=== PATIENT | female | born 1975 | race Caucasian/White ===

== ENCOUNTER → 2016-09-13 07:19 | Day surgery (SDC) | payer OTHER ==
[~2016-09-13 07:19] MED LIST: Atracurium* 10 MG/ML 10 ML VIAL ONE; Buffered Lidocaine 1% SYRIN* 3 ML/SYR SYRINGE INTRADERM ONE; Bupivacaine 0.5% W/EPI SDV* 30 ML VIAL ONE; Dexamethasone IV* 4 MG/ML 1 ML (4 MG) IV SLOW PU ONE; Dexamethasone IV* 4 MG/ML 1 ML (4 MG) ONE; DiMENhydriNATE IV* 50 MG/ML VIAL IV PUSH PRN; EPINEPHrine AMP 1 MG/ML ONE; Famotidine IV* 10 MG/ML 2 ML (20 mg) IV ONE; Famotidine IV* 10 MG/ML 2 ML (20 mg) ONE; HYDROmorphone* 1 MG/ML 1 ML SYR IV PRN; Ketorolac INJ* 30 MG/ML 1 ML VIAL ONE; Midazolam* 1 MG/ML 5 ML VIAL (5 MG) ONE; Ondansetron INJ* 2 MG/ML VIAL IV PRN; Ondansetron INJ* 2 MG/ML VIAL ONE; Propofol* 10 MG/ML 20 ML BTL IV PUSH ONE; ROPIVACAINE 5 MG/ML 30 ML BTL (0.5%) ONE; Scopolamine 1.5 mg* PATCH TRANSDERM PRN; Scopolomine PATCH Remove* 1 NOTE MISC PATCH OFF ONE; ceFAZolin 2 GM PREMIX(*) 2 GM/50 ML BAG IVPB ONE; fentaNYL* 50 MCG/ML 2 ML VIAL (100 MCG VIAL) IV PRN; fentaNYL* 50 MCG/ML 2 ML VIAL (100 MCG VIAL) ONE; oxyCODONE/Acetamin 5/325 MG* TAB ONE; oxyCODONE/Acetamin 5/325 MG* TAB PO PRN
[2016-09-13 07:26] LABS: Manual Entry Verification HAN0055; UR Preg Internal Control QC Line Present
[2016-09-13 14:05] VITALS: BP 110/70
--- NOTE | 2016-09-14 07:14 | RAD ---
INDICATION: Right knee arthroscopic surgery, anterior cruciate ligament reconstruction. COMPARISON: Comparison is made with a prior x-ray study of the right knee from August 05, 2016. TECHNIQUE: 21 seconds of intermittent fluoroscopic guidance were provided and 2 spot films of the right knee were obtained in the operating room. FINDINGS: The films demonstrate a surgical instrument which projects over the proximal tibia. IMPRESSION: INTRAOPERATIVE CONTROL FILMS. CPT II Codes: 6045F
--- NOTE | 2016-09-15 06:42 | OP ---
DATE OF OPERATION: 09/13/16 - [facility] DATE OF : 71 SURGEON: Anton Mcpherson MD PHARMACOV[employer]ILANCE SAFETY EXPERT: AUSTIN Mercedes ANESTHESIOLOGIST: Enoch Pfeiffer MD ANESTHESIA: General, regional, local. PRE-OP DIAGNOSIS: Right knee ACL tear. POST-OP DIAGNOSIS: Right knee ACL tear. OPERATIVE PROCEDURE: 1. Right arthroscopic ACL reconstruction with pegi-okxpabvv-xjbq allograft. 2. Right arthroscopic anterior synovectomy. ANTIBIOSIS: 2 g Ancef IV. IV FLUIDS: See Anesthesia note. TOURNIQUET TIME: 130 minutes at 300 mmHg. ESTIMATED BLOOD LOSS: Minimal. COMPLICATIONS: None. SPECIMENS: None. IMPLANTS: Mitek Shonna and 9 mm screws x2, a kral-ogoqejfv-rtkf allograft. 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 Barnhart, who sustained an injury to the right knee while skiing on 08/03/16 when she was knocked over by a child skier. She heard a pop. She was uncertain if it was from her knee or from her skis. There was immediate swelling to the right knee. There was significant pain. Therefore, she was taken down of the bottom of mountain on a . The patient likes to walk and plans to resume skiing. The patient plans on a trip to [facility] through work in school and plans on leaving on 11/23/16. She will have no medical support while in [facility]. No prior history of injuries to the right knee. The patient has already worked with Alida at [employer] [facility] Therapy preoperatively. The patient's exam in the office was consistent with an ACL tear. Last exam in the office demonstrated 0 to 120 degrees range of motion, decreased tone and bulk of the quadriceps, but improved since my first visit with her. Mild lateral joint line tenderness. Positive laxity with Teofilo's and click. Positive mild laxity with anterior drawer. No pain with pivot-shift maneuver. X-rays demonstrated no joint space narrowing or osteophytosis. MRI of the right knee demonstrated a mid substance ACL tear. Radiologist read a possible grade I PCL and MCL injuries. My exam produced no pain or laxity with MCL stress testing at the time I saw her in clinic. Similarly, negative posterior drawer. I did not think the PCL changes were significant on MRI. The patient opted for surgery and we discussed different graft choices and she decided on a pvww-trkphuoy-eosw allograft. DESCRIPTION OF PROCEDURE: Preoperative written consent. Operative extremity was marked in preoperative holding. I went through the benefits, risks, and potential complications of operation with the patient. The patient was taken back to the operating room and a regional block was performed by Dr. Pfeiffer. The patient was then sedated and intubated. I then did an examination under anesthesia of the right knee, which was consistent with my clinic exam just detailed above. A proximal right thigh tourniquet was placed, but not yet inflated. A lateral thigh post was attached to the table. The right lower extremity was prepped and draped. Surgical time-out was performed. Right knee arthroscopy anterolateral portal was established and the knee was arthroscoped after an Esmarch had been applied and tourniquet had been elevated to 300 mmHg. I scoped the knee. There are some grade 2 changes on the medial aspect of the undersurface of the patella. Otherwise, no significant harm to patellofemoral compartment. Medial and lateral compartments showed no articular cartilage wear and no meniscus tears. I debrided some synovitis anteriorly with an arthroscopic shaver that I entered through an anteromedial portal made under direct visualization. I used an arthroscopic probe to probe the vestige of the patient's ACL ligament. It was clearly torn both mid substance and off the wall at the lateral aspect of the intercondylar notch. At this confirmation arthroscopically, the patient's ACL tear, instructed OR staff to begin thawing the ACL allograft bone- patellar-bone , precontoured. While awaiting for this to thaw, I started my debridement in the intercondylar notch. Before processing further; however, I next applied the [facility] knee positioner to the bed and then the boot to the patient's lower leg. I resumed scoping the patient's knee with the knee in 90 degrees of flexion. I cleared of the lateral wall of the intercondylar notch with using a vapor and also an arthroscopic shaver. I then used an arthroscopic bur to perform a notchplasty. I obtained an excellent Gothic Arch on the intercondylar notch. I removed with arthroscopic shaver the remnant of the ACL. I was able to visualize and hali with the vapor the insertion point of the ACL and tibia. It corresponded nicely with the posterior aspect of the anterior horn of the lateral meniscus. Before drilling the tunnels, I next prepared the graft. At this point, I dropped the tourniquet. I believe the tourniquet time at this point was approximately 40 minutes. I dropped the tourniquet while I prepared the allograft. I went to the back table. I sized the bony blocks. I took a little bit of the length of the tibial bone block and bulleted the patellar bone block. I placed one #5 FiberWire in the proximal bone block and one #2 FiberWire in the distal bone block. With 1 stitch on each side, I placed several whipstitches before placing the suture through the bone block themselves. I sized these blocks to a 10, although there were a little bit on the small size for a 10, went through both 10 and 9.5 mm sizers pretty smoothly. They did not go through a 9 mm cylinder. I then maintained the graft in a stretched out position under tension with a moist sponge around it. I then returned to the knee. Tourniquet was reinflated to 300 mmHg after an Esmarch was applied. I then drilled a femoral tunnel with the knee in 120 degrees of flexion with the 10:30 position with the knee in 90 degrees of flexion as my landmark. I got some excellent photographs of the drilled femoral tunnel. I then placed my Beath pin in the tibia. Before drilling the tibial tunnel, I took a mini C-arm and confirmed the position of that pin in both the coronal and sagittal planes. Coronally the pin looked exactly in the mid point of the knee from medial to lateral. Looking at the lateral plane, I was approximately 40% of the way from anterior to posterior with the pin exiting bone posterior to the roof of the intercondylar notch. Therefore, I really liked the position of the pin and I drilled the tibial tunnel, also 10 mm. Debridement of particular degree. I placed a passing stitch through the tunnels and then passed my graft. I did not notch, but I used a cap, 8 mm in size and then 9 mm in size. I placed [employer] Shonna Mitek screws, 9 mm in size, both the femur and the tibia. I then did an anterior drawer and Teofilo and really liked the tightness of the ACL. The knee reached full extension easily. Very happy with my result. It should be stated that I placed my tibial screw with a posterior drawer maneuver being performed by one of my assistants. I then reinserted the arthroscope and confirmed that I liked the position of the ACL graft with the knee 0 to 120 degrees of flexion. I then exited the knee of fluid and instruments. Cut excess suture. I closed the tibial tunnel skin incision site with some nwywbm-[id number] deep stitches using Vicryl 0 suture and then some buried simple stitches using Vicryl 2-0 suture in the more superficial subcutaneous layer. That deep layer with the Vicryl 0 stitches was more of a fascial layer. Closed the skin incision and the tibial tunnel skin incision with a running stitch in a subcuticular layer using Monocryl 4.0 suture. I closed the 3 arthroscopic portals with [id number] stitches using the Monocryl 4.0 suture. Xeroform, 4x4s, ABDs, sterile Webril, Shay bandage from foot to proximal thigh. Dropped tourniquet. Knee brace locked in extension. The patient was awakened and extubated and brought to the PACU. DISPOSITION: The patient will go to physical therapy early next week and will follow up with me in 10 to 14 days postoperatively. Percocet, Keflex, and aspirin postoperatively. [id number]/CPS #: [id number] MTDD
== END | disposition home or self-care (01) ==
LOC: OR 07:19
PROVIDERS: ATTEND Orthopaedic Surgery
DX: S83.511A Sprain of anterior cruciate ligament of right knee, initial encounter (principal); W50.0XXA Accidental hit or strike by another person, initial encounter; Y93.23 Activity, snow (alpine) (downhill) skiing, snowboarding, sledding, tobogganing and snow tubing; Y92.838 Other recreation area as the place of occurrence of the external cause
CPT/HCPCS: 76000; 81025; A9270-GY; C1776; J0171; J0690; J1100; J1885; J2250; J2405; J2704; J2795; J3010